=== PATIENT | female | born 1955 | race Caucasian/White ===

== ENCOUNTER 2018-07-17 05:38 | Observation (INO) | payer MEDICARE, OTHER ==
[2018-07-17] MEDS ORDERED: FAMOTIDINE 20 MG/2 ML VIAL ONE (06:14)
[2018-07-17] MEDS ORDERED: ENOXAPARIN SODIUM 40 MG/0.4 ML DISP.SYRIN SQ ONE (06:14)
[2018-07-17] MEDS ORDERED: SCOPOLAMINE HYDROBROMIDE 1.5MG/72HR PATCH TD ONE (06:14)
[2018-07-17] MEDS ORDERED: LACTATED RINGERS 1,000 ML IV ONE (06:14)
[2018-07-17] MEDS ORDERED: ACETAMINOPHEN 1,000 MG/100 ML INJ IV ONE ×2 (07:31→08:48)
[2018-07-17] MEDS ORDERED: LIDOCAINE HCL 2% PF 100MG/5ML VIAL IJ ONE (08:48)
[2018-07-17] MEDS ORDERED: HYDROmorphone HCL/PF 2 MG/ML VIAL ONE ×2 (08:48→09:46)
[2018-07-17] MEDS ORDERED: BUPIV. HCL 0.5% (5MG/ML)/EPI. (1:200,000) PF 30 ML VIAL IJ ONE (08:48)
[2018-07-17] MEDS ORDERED: PROMETHAZINE HCL 25 MG/ML VIAL ONE ×2 (08:48→09:28)
[2018-07-17] MEDS ORDERED: SEVOFLURANE 250 ML LIQUID IH ONE (08:48)
[2018-07-17] MEDS ORDERED: ROCURONIUM BROMIDE 10 MG/ML 5ML VIAL ONE (08:48)
[2018-07-17] MEDS ORDERED: PROPOFOL 200 MG/20 ML VIAL IV ONE (08:48)
[2018-07-17] MEDS ORDERED: DEXAMETHASONE SOD PHOS 4 MG/ML VIAL ONE (08:48)
[2018-07-17] MEDS ORDERED: LACTATED RINGERS 1,000 ML IV.SOLN IV ONE (08:48)
[2018-07-17] MEDS ORDERED: FENTANYL CITRATE/PF 250 MCG/5 ML INJ. ONE (08:48)
[2018-07-17] MEDS ORDERED: LIDOCAINE HCL 1% MDV 200MG/20ML VIAL ONE (08:48)
[2018-07-17] MEDS ORDERED: SUGAMMADEX SODIUM 200 MG/2 ML VIAL IV ONE (08:48)
[2018-07-17] MEDS ORDERED: MIDAZOLAM HCL 2 MG/2 ML VIAL ONE (08:48)
[2018-07-17] MEDS ORDERED: ePHEDrine SULFATE 50 MG/1 ML IVP ONE (08:48)
[2018-07-17] MEDS ORDERED: SODIUM CHLORIDE IRRIG SOLUTION 3,000 ML IRRIG.SOLN IR ONE (08:48)
[2018-07-17] MEDS ORDERED: ceFAZolin SODIUM 1 GM VIAL ONE (08:48)
[2018-07-17] MEDS ORDERED: LEVALBUTEROL HCL 1.25 MG/3 ML AMPUL.NEB NEB PRN (10:35)
[2018-07-17] MEDS ORDERED: HYDROcodone /APAP 10/325 1 EACH TABLET PO PRN ×2 (10:35→17:56)
[2018-07-17 10:49] VITALS: BMI 38.9
[2018-07-17] MEDS ORDERED: RED CRASH CART TAGS 1 EACH MC ONE (11:34)
[2018-07-17] MEDS: ONDANSETRON HCL/PF 4 MG/ 2ML VIAL IVP PRN ×2 (11:43→20:27)
[2018-07-17] MEDS: 0.9 % SODIUM CHLORIDE 1,000 ML IV SCH ×2 (11:45→18:13)
[2018-07-17] MEDS: KETOROLAC TROMETHAMINE 30 MG/1ML VIAL IVP PRN ×2 (12:55→20:09)
[2018-07-17] MEDS: PROMETHAZINE HCL 25 MG in 0.9 % SODIUM CHLORIDE 50 ML IV PRN ×2 (15:21→21:29)
--- NOTE | 2018-07-17 16:19 | History and Physical Report ---
History of Present Illnes - History of Present Illness Reason for Visit: S/P Gastric Sleeve History of Present Illness: Patient is a 63-year-old white female who has tried multiple diets and exercise programs with no success. Patient and surgeon decided to proceed with gastric sleeve procedure. Procedure went well without complications- patient will be admitted and monitored s/p surgical intervention. 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: Migraine Gastrointestinal: GERD Hepatobiliary: denies: Hep A/B/C Psych: Anxiety, Depression Musculoskeletal: Chronic low back pain (with sciatica), Osteoarthritis (knees, hips, feet), Other (DDD) Rheumatologic: Fibromyalgia Infectious Disease: denies: HIV ENT: denies: Sinusitis Renal/: denies: Acute renal failure Endocrine: Diabetes, obesity Grav: 2 Para: 2 Ab: 0 - Past Surgical History Past Surgical History: Hysterectomy, Other (breast biopsy), Tonsillectomy, Other (fusion of L4L5, cervical disc replacement) - Past Family History Mother Family History: CAD, Hyperlipidemia, Hypertension Father Family History: CAD, DM, Hypertension - Past Social History Smoke: Quit Alcohol: Rare Drugs: None Lives: With Family Domestic Violence: Negative - Health Maintenance Health Maintenance: Cholesterol, Influenza Vaccine, Pneumococcal Vaccine, Mammogram Influenza Vaccine: Current for this Influenza Season Pneumonia Vaccine: Yes Resuscitation Status: Resusciation Status Resuscitation Status Full Code - Unable to Obtain History Unable to Obtain: No Review of Systems - Review of Systems Constitutional: negative: Fever, Chills Eyes: negative: pain, vision change ENT: negative: Ear Pain, Nose Pain, Throat Pain Respiratory: SOB with Excertion. negative: Cough Cardiovascular: negative: Chest Pain, Edema Gastrointestinal: Nausea, Abdominal Pain (s/p gastric sleeve). negative: Vomiting Genitourinary: negative: Dysuria Musculoskeletal: Back Pain, Other (chronic knee, hips, feet pain) Skin: negative: Rash Neurological: negative: Weakness, Confusion - Medications/Allergies Allergies/Adverse Reactions: Allergies Allergy/AdvReac Type Severity Reaction Status Date / Time lactase [From Dairy Aid] Allergy Mild Verified 07/17/18 12:36 latex Allergy Unknown Verified 07/17/18 12:36 methylprednisolone Allergy Unknown Verified 07/17/18 12:36 [From Depo-Medrol] cantalope Allergy Uncoded 07/17/18 10:34 passion fruit Allergy Uncoded 07/17/18 10:34 Home Medications: Home Medications Acetaminophen with Codeine [Tylenol with Codeine #4 Tablet] 1 each PO BID 07/17/18 Carisoprodol 350 mg PO Q12 07/17/18 Cyanocobalamin (Vitamin B-12) [Vitamin B-12] 1,000 mcg PO DAILY 07/17/18 D3/Folic Acid/Collagen,Hydroly [Cyfolex Capsule] 1 each PO DAILY 07/17/18 Estradiol 0.5 mg PO DAILY 07/17/18 Fenofibrate 160 mg PO DAILY 07/17/18 Fluticasone Propionate [Flonase Nasal [place]] 1 spray NS DAILY 07/17/18 Gabapentin [Neurontin] 800 mg PO BID 07/17/18 Glimepiride [Amaryl] 4 [place] [address] 07/17/18 Lansoprazole [Heartburn Treatment 24 Hour] 15 mg PO DAILY 07/17/18 Lisinopril [Prinivil] 10 mg PO DAILY 07/17/18 Multivitamin [Tab-A-Liv] 1 each PO DAILY 07/17/18 Pravastatin Sodium 40 mg PO DAILY 07/17/18 Sertraline HCl [Zoloft] 100 mg PO DAILY 07/17/18 Tramadol HCl [Ultram] 50 mg PO Q6 07/17/18 Current Inpatient Medications: Current Inpatient Medications Cefazolin Sodium/Dextrose (Cefazolin 1 G/50 Ml-Dextrose) 1 gm IV Q8H REPLACED BY [facility] Stop: 07/18/18 00:31 Enoxaparin Sodium (Lovenox) 40 mg SQ QD REPLACED BY [facility] Stop: 08/01/18 10:59 Famotidine (Pepcid) 20 mg IVP BID REPLACED BY [facility] Stop: 07/21/18 20:59 Gabapentin (Neurontin) 600 mg PO DAILY REPLACED BY [facility] Gabapentin (Neurontin) 200 mg PO DAILY REPLACED BY [facility] Sodium Chloride (Normal Saline) 1,000 mls @ 150 mls/hr IV Q8H REPLACED BY [facility] Last Admin: 07/17/18 11:45 Dose: 150 mls/hr Promethazine HCl 25 mg/ Sodium (Chloride) 51 mls @ 200 mls/hr IV Q6 PRN PRN Reason: Nausea / Vomiting Stop: 07/21/18 10:34 Last Admin: 07/17/18 15:21 Dose: 200 mls/hr Ketorolac Tromethamine (Toradol) 30 mg IVP Q6 PRN PRN Reason: For Mild Pain Stop: 07/21/18 10:34 Last Admin: 07/17/18 12:55 Dose: 30 mg Levalbuterol HCl (Xopenex) 1.25 mg NEB Q4 PRN PRN Reason: SOA, Dyspnea, or Wheezing Stop: 07/21/18 10:34 Miscellaneous (Chem Sticks) 1 each MC Q6H REPLACED BY [facility] Last Admin: 07/17/18 11:45 Dose: 1 each Morphine Sulfate (Depodur) 2 mg IVP Q4 PRN PRN Reason: ONLY IF UNABLE TO TAKE PO MEDS Ondansetron HCl (Zofran 4 Mg/2 Ml) 4 mg IVP Q6H PRN PRN Reason: Nausea / Vomiting Stop: 07/21/18 10:34 Last Admin: 07/17/18 11:43 Dose: 4 mg Sertraline HCl (Zoloft) 100 mg PO DAILY REPLACED BY [facility] Exam - Exam Vital Signs: Vital Signs (72 hours) 07/17/18 07/17/18 07/17/18 10:30 10:34 10:35 Temperature 96.5 F L 97.2 F L Pulse Rate Pulse Rate [ 87 89 Right Brachial] Respiratory 18 18 Rate Blood Pressure 132/72 149/61 [Right Arm] O2 Sat by Pulse 96 96 94 Oximetry 07/17/18 07/17/18 07/17/18 11:00 11:30 13:48 Temperature 97.5 F L 97.8 F Pulse Rate 94 H Pulse Rate [ 85 100 H Right Brachial] Respiratory 18 14 Rate Blood Pressure 156/69 157/73 [Right Arm] O2 Sat by Pulse 94 97 Oximetry 07/17/18 14:34 Temperature Pulse Rate Pulse Rate [ 100 H Right Brachial] Respiratory 14 Rate Blood Pressure [Right Arm] O2 Sat by Pulse Oximetry General: Alert, Oriented to Person, Oriented to Place, Oriented to Time, Cooperative, Mild distress, Morbidly Obese HEENT: Atraumatic, PERRLA, Mouth Mucous membr. moist/[place], Nose Mucous membr. moist/[place] Neck: Normal Range of Motion Lungs: Clear to auscultation, Normal air movement, Speaks full Sentences Cardiovascular: Regular rate, Normal S1, Normal S2 Abdomen: Soft, Decreased Bowel Sounds Integumentary: Warm, Dry, Pale, Other (incision sites dry & intact) Extremities: No edema, Normal pulses, No tenderness/swelling (SCDs on lower extremities) Neurological: Normal gait (pt has been up walking), Normal speech, Strength Equal Bilat, Sensation intact Psych/Mental Status: Mental status NL, Mood NL, Appropriate Affect Assessment/Plan - Assessment/Plan (1) S/P gastric surgery Status: Acute Current Visit: Yes Assessment: Incisions are without redness/erythema, legs are without tenderness/pain, LCTA Plan: Will monitor incision sites, patient will be placed on Lovenox daily, frequent ambulation and SCDs while in bed, patient will use incentive spirometer to prevent resp. infections, will start PPI, and will give IVFs until patient can tolerate PO (2) Morbid obesity due to excess calories Status: Acute Current Visit: Yes Assessment: S/P gastric sleeve (3) Asthma Status: Acute Current Visit: Yes Qualifiers: Asthma severity: mild Asthma persistence: intermittent Asthma complication type: uncomplicated Qualified Code(s): J45.20 - Mild intermittent asthma, uncomplicated Assessment: LCTA- stable on admission Plan: Will monitor respiratory- will encourage use of incentive spirometer- HFN ordered if needed (4) Non-insulin dependent type 2 diabetes mellitus Status: Acute Current Visit: Yes Assessment: Blood sugars are 296 and 311 s/p surgery- no sx's of hyperglycemia Plan: will continue to monitor blood sugars and start amaryl back tomorrow (5) Obstructive sleep apnea Status: Acute Current Visit: Yes Assessment: Patient states it is stable with CPAP Plan: Will use CPAP (6) Anxiety and depression Status: Acute Current Visit: Yes Assessment: Stable on home meds Plan: Will hold meds during hospitalization (7) Fibromyalgia Status: Acute Current Visit: Yes Assessment: Controlled with home meds Plan: Will hold home meds at this time- pain meds are ordered (8) Hyperlipidemia Status: Acute Current Visit: Yes Qualifiers: Hyperlipidemia type: mixed hyperlipidemia Qualified Code(s): E78.2 - Mixed hyperlipidemia Assessment: stable on home meds Plan: Will hold meds at this time (9) Hypertension Status: Acute Current Visit: Yes Qualifiers: Hypertension type: essential hypertension Qualified Code(s): I10 - Essential (primary) hypertension Assessment: Blood pressure 157/73- stable on home meds Plan: Will hold blood pressure med at this time and monitor BP closely VTE Assessment - RISK FACTOR SCORE VTE RISK FACTOR SCORES: AGE OVER 60 YEARS, OBESITY, MAJOR SURGERY/ANESTHESIA TIME > 1 HOUR (LOvenox daily, frequent ambulation, SCDs while in bed)
[2018-07-17] MEDS: CEFAZOLIN SODIUM/DEXTROSE,ISO 1 GM/50 ML PIGGYBACK IV SCH (16:43)
[2018-07-17] MEDS ORDERED: MAG HYDROX/ALUMINUM HYD/SIMETH 30 ML UDC PO ONE (16:48)
[2018-07-17] MEDS ORDERED: HYDROcodone /APAP 10/325 1 EACH TABLET PO ONE (18:01)
[2018-07-17] MEDS: HYDROcodone /APAP 10/325 1 EACH TABLET PO PRN ×2 (18:15→21:32)
[2018-07-17] MEDS: FAMOTIDINE 20 MG/2 ML VIAL IVP SCH (20:06)
[2018-07-18] MEDS: CEFAZOLIN SODIUM/DEXTROSE,ISO 1 GM/50 ML PIGGYBACK IV SCH (00:30)
[2018-07-18] MEDS: MORPHINE SULFATE 2 MG/ML VIAL IVP PRN ×2 (00:58→01:22)
[2018-07-18] MEDS: 0.9 % SODIUM CHLORIDE 1,000 ML IV SCH ×4 (01:26→20:24)
[2018-07-18] MEDS: KETOROLAC TROMETHAMINE 30 MG/1ML VIAL IVP PRN ×2 (02:02→20:29)
[2018-07-18] MEDS: ONDANSETRON HCL/PF 4 MG/ 2ML VIAL IVP PRN ×2 (02:05→18:19)
[2018-07-18] MEDS: HYDROcodone /APAP 10/325 1 EACH TABLET PO PRN ×2 (04:24→11:10)
--- NOTE | 2018-07-18 07:07 | Inpatient Progress Note ---
Subjective - Required Recertification Statement I anticipate X number of days because-include discharge plan: 1 - Review of Systems Events since last encounter: Patient was running some elevated blood sugars greater than 300- nursing was to take Gatorade out of the room- during rounds this morning noticed blood sugars still > 300- patient still drinking Gatorade (had nursing remove from room)- will start sliding scale insulin to get blood sugar < 200- pt is in agreement with plan. Nursing will get with kitchen about NCS. Overall, patient states she had some trouble around midnight with pain and nausea but she has walked multiple times- is passing gas & belching and feels much better this morning. General: Fatigue HEENT: Denies: Dysphasia, Sore Throat Pulmonary: Denies: Dyspnea Cardiovascular: Denies: Chest Pain, Edema Gastrointestinal: Nausea, Abdominal Pain (s/p gastric sleeve- pain improving). Denies: Vomiting Genitourinary: Denies: Dysuria Musculoskeletal: Back Pain (chronic) Neurological: Weakness Objective - Exam Vitals and I&O: Vital Signs Temp 97.6 F 07/18/18 06:00 Pulse 101 H 07/18/18 06:00 Resp 18 07/18/18 06:00 BP 124/53 07/18/18 06:00 Pulse Ox 96 07/18/18 06:00 Intake & Output 07/17/18 07/17/18 07/18/18 11:59 23:59 11:59 Intake Total 1080 1920 Output Total 350 700 550 Balance -299 300 9316 Weight 96.615 kg Intake: IV 900 1650 Left Forearm 900 1650 Oral 180 270 Output: Urine 350 700 550 Other: Voiding Method Toilet Toilet Toilet # Voids 1 1 General: Alert, Oriented to Person, Oriented to Place, Oriented to Time, Cooperative, No acute distress HEENT: Atraumatic, Mouth Mucous membr. moist/[place], Nose Mucous membr. moist/[place] Neck: Supple, +2 carotid pulse wo bruit Lungs: Clear to auscultation, Normal air movement, Speaks full Sentences Cardiovascular: Regular rate, Normal S1, Normal S2 Abdomen: Normal bowel sounds, Soft Extremities: No edema, Normal pulses, No tenderness/swelling Skin: Normal, [place], Warm, Dry, Other (Incision dressings are dry and intact) Neurological: Normal gait (walking frequently), Normal speech, Strength Equal Bilat, Sensation intact Psych/Mental Status: Mental status NL, Mood NL, Appropriate Affect Assessment/Plan - Assessment/Plan (1) S/P gastric surgery Status: Acute Current Visit: Yes Assessment: Incisions are without redness/erythema, legs are without tenderness/pain, LCTA Plan: Will monitor incision sites, patient will be placed on Lovenox daily, frequent ambulation and SCDs while in bed, patient will use incentive spirometer to prevent resp. infections, will start PPI, and will give IVFs until patient can tolerate PO (2) Morbid obesity due to excess calories Status: Acute Current Visit: Yes Assessment: S/P Gastric Sleeve (3) Asthma Status: Acute Current Visit: Yes Qualifiers: Asthma severity: mild Asthma persistence: intermittent Asthma complication type: uncomplicated Qualified Code(s): J45.20 - Mild intermittent asthma, uncomplicated Assessment: LCTA Plan: Continue home meds (4) Non-insulin dependent type 2 diabetes mellitus Status: Acute Current Visit: Yes Assessment: Blood sugars >300 asymptomatic- removed sugar drinks from room Plan: Removed sugar drinks from room- educated staff- will start sliding scale insulin (5) Obstructive sleep apnea Status: Acute Current Visit: Yes Assessment: Stable with CPAP Plan: continue CPAP (6) Anxiety and depression Status: Acute Current Visit: Yes Assessment: Stable Plan: Stable with continue to hold home meds (7) Fibromyalgia Status: Acute Current Visit: Yes Assessment: stable Plan: continue to monitor- will have patient up and ambulating (8) Hyperlipidemia Status: Acute Current Visit: Yes Qualifiers: Hyperlipidemia type: mixed hyperlipidemia Qualified Code(s): E78.2 - Mixed hyperlipidemia Assessment: Stable Plan: Continue to monitor- will hold meds (9) Hypertension Status: Acute Current Visit: Yes Qualifiers: Hypertension type: essential hypertension Qualified Code(s): I10 - Essential (primary) hypertension Assessment: Blood pressure stable Plan: Will continue to hold
[2018-07-18] MEDS ORDERED: GABAPENTIN 800 MG PO SCH (09:00)
[2018-07-18] MEDS: GLIMEPIRIDE 2 MG TABLET PO SCH ×2 (09:11→17:24)
[2018-07-18] MEDS: INSULIN REGULAR, HUMAN 100 UNIT/ML 3ML VIAL SQ SCH ×4 (09:14→20:51)
[2018-07-18] MEDS: GABAPENTIN 300 MG CAPSULE PO SCH (10:43)
[2018-07-18] MEDS: FAMOTIDINE 20 MG/2 ML VIAL IVP SCH ×2 (10:43→20:21)
[2018-07-18] MEDS: GABAPENTIN 100 MG CAPSULE PO SCH (10:43)
[2018-07-18] MEDS: ENOXAPARIN SODIUM 40 MG/0.4 ML DISP.SYRIN SQ SCH (10:48)
[2018-07-18] MEDS: SERTRALINE HCL 50 MG TABLET PO SCH (10:48)
[2018-07-18] MEDS: ESTRADIOL 1 MG TABLET PO SCH (12:46)
[2018-07-19] MEDS: 0.9 % SODIUM CHLORIDE 1,000 ML IV SCH (02:59)
--- NOTE | 2018-07-19 07:41 | Discharge Summary ---
Discharge Summary - Discharge Sumary History of Present Illness: Patient is a 63-year-old white female who has tried multiple diets and exercise programs with no success. Patient and surgeon decided to proceed with gastric sleeve procedure. Procedure went well without complications- patient will be admitted and monitored s/p surgical intervention. Condition at Discharge: Stable Home Medications: Ambulatory Orders Medication Instructions Recorded Acetaminophen with Codeine 1 each PO BID 07/17/18 [Tylenol with Codeine #4 Tablet] Carisoprodol 350 mg PO Q12 07/17/18 Cyanocobalamin (Vitamin B-12) 1,000 mcg PO DAILY 07/17/18 [Vitamin B-12] D3/Folic Acid/Collagen,Hydroly 1 each PO DAILY 07/17/18 [Cyfolex Capsule] Estradiol 0.5 mg PO DAILY 07/17/18 Fenofibrate 160 mg PO DAILY 07/17/18 Fluticasone Propionate [Flonase 1 spray NS DAILY 07/17/18 Nasal [place]] Gabapentin [Neurontin] 800 mg PO BID 07/17/18 Glimepiride [Amaryl] 4 [place] [address] 07/17/18 Lansoprazole [Heartburn Treatment 15 mg PO DAILY 07/17/18 24 Hour] Lisinopril [Prinivil] 10 mg PO DAILY 07/17/18 Multivitamin [Tab-A-Liv] 1 each PO DAILY 07/17/18 Pravastatin Sodium 40 mg PO DAILY 07/17/18 Sertraline HCl [Zoloft] 100 mg PO DAILY 07/17/18 Tramadol HCl [Ultram] 50 mg PO Q6 07/17/18 Consultations this Visit: None Procedures this Visit: Other (S/P Gastric Sleeve) Allergies/Adverse Reactions: Allergies Allergy/AdvReac Type Severity Reaction Status Date / Time lactase [From Dairy Aid] Allergy Mild Verified 07/17/18 12:36 latex Allergy Unknown Verified 07/17/18 12:36 methylprednisolone Allergy Unknown Verified 07/17/18 12:36 [From Depo-Medrol] cantalope Allergy Uncoded 07/17/18 10:34 passion fruit Allergy Uncoded 07/17/18 10:34 Patient Problems: Current Active Problems Problem Status Onset Anxiety and depression Acute Asthma Acute Fibromyalgia Acute Hyperlipidemia Acute Hypertension Acute Morbid obesity due to excess calories Acute Non-insulin dependent type 2 diabetes mellitus Acute Obstructive sleep apnea Acute S/P gastric surgery Acute Discharge Summary: Patient is a 63-year-old white female that underwent the gastric sleeve procedure and has done very well. She has been very cooperative with her care by ambulating frequently, using her incentive spirometer, and wearing her SCDs while in bed. She has been compliant with her diet during hospitalization. She is having minimal discomfort at this time and minimal nausea- she has had a bowel movement and is passing gas and belching. She is aware of discharge instructions and what she can and cannot do post surgical- she is aware of the strict diet she must follow to decrease discomfort and have success after procedure. She has family support and daughter will be taking her home- medications written by surgeon were filled by family prior to discharge and patient feels that she is ready to go home. She appears very positive and excited about the future. Hospital Course: Patient takes oral diabetic meds- after surgery patient was running with blood sugars >300 asymptomatic- she was placed on sliding scale insulin and blood sugars have been <200. Patient was concerned when she got down to 160 (she was asymptomatic)- pt was educated on monitoring blood sugars and the extreme importance of getting them <150. We held blood pressure medication and blood pressures have been stable- she has been cooperative with care and treatment. - Final Diagnosis (1) S/P gastric surgery Problems: Incisions are without redness/erythema, legs are without tenderness/pain, LCTA, patient will use incentive spirometer to prevent resp. infections while at home, and frequent ambulation Right or Left: Right (2) Morbid obesity due to excess calories Problems: S/P gastric sleeve Right or Left: Right (3) Asthma Problems: Stable on home meds Right or Left: Right (4) Non-insulin dependent type 2 diabetes mellitus Problems: Patient was on sliding scale during hospitalization- will continue PO meds and monitor blood sugars and take to follow up appointment Right or Left: Right (5) Obstructive sleep apnea Problems: STable with CPAP Right or Left: Right (6) Anxiety and depression Problems: stable on home meds Right or Left: Right (7) Fibromyalgia Problems: Stable on home meds Right or Left: Right (8) Hyperlipidemia Problems: Stable on home meds Right or Left: Right (9) Hypertension Problems: Stable on home meds Right or Left: Right
[2018-07-19] MEDS: GLIMEPIRIDE 2 MG TABLET PO SCH (07:47)
[2018-07-19] MEDS: INSULIN REGULAR, HUMAN 100 UNIT/ML 3ML VIAL SQ SCH ×2 (07:48→12:16)
[2018-07-19] MEDS: FAMOTIDINE 20 MG/2 ML VIAL IVP SCH (09:11)
[2018-07-19] MEDS: ESTRADIOL 1 MG TABLET PO SCH (09:12)
[2018-07-19] MEDS: SERTRALINE HCL 50 MG TABLET PO SCH (09:13)
[2018-07-19] MEDS: GABAPENTIN 100 MG CAPSULE PO SCH (09:13)
[2018-07-19] MEDS: GABAPENTIN 300 MG CAPSULE PO SCH (09:13)
[2018-07-19 09:57] VITALS: BP 144/63
[2018-07-19] MEDS: ENOXAPARIN SODIUM 40 MG/0.4 ML DISP.SYRIN SQ SCH (12:15)
== END 2018-07-19 11:00 | disposition home or self-care (01) ==
LOC: OPSURG 05:38 → INTOOBSV 10:18 → SOUTH 10:18
PROVIDERS: ADMIT Nurse Practitioner Family; ATTEND Nurse Practitioner Family
DX: E66.01 Morbid (severe) obesity due to excess calories (principal); Z68.39 Body mass index [BMI] 39.0-39.9, adult; E11.9 Type 2 diabetes mellitus without complications; E78.2 Mixed hyperlipidemia; G47.33 Obstructive sleep apnea (adult) (pediatric); J45.20 Mild intermittent asthma, uncomplicated; M79.7 Fibromyalgia; F32.9 Major depressive disorder, single episode, unspecified; F41.9 Anxiety disorder, unspecified; M19.90 Unspecified osteoarthritis, unspecified site
CPT/HCPCS: 43235; 43775; 88305; 97116; 97161; 97165; 97530; A9270; G0378; J0690; J1100; J1170; J1650; J1815; J1885; J2001; J2250; J2270; J2405; J2550; J2704; J7030; J7120; S0028; 99217; 99218; 99224; 99225